=== PATIENT | male | born 1990 | race Caucasian/White ===

== ENCOUNTER → 2020-04-16 | Outpatient (CLI) | payer OTHER ==
[2020-04-16 16:10] LABS: BASO % 1 % (0-3); EOS # 0.1 x10^3/uL (0.0-0.7); EOS % 2 % (0-3); HEMATOCRIT 44.8 % (39.0-53.0); HEMOGLOBIN 15.3 g/dL (13.0-17.5); LYMPH # 1.6 x10^3/uL (1.0-4.8); LYMPH % 23 % (24-48); MEAN CORPUSCULAR HEMOGLOBIN 31 pg (25-35); MEAN CORPUSCULAR HGB CONC 34 g/dL (31-37); MEAN CORPUSCULAR VOLUME 91 fL (79-100); MONO # 0.5 x10^3/uL (0.0-1.1); MONO % 7 % (0-9); NEUT # 4.7 x10^3/uL (1.8-7.7); NEUT % 67 % (31-73); PLATELET COUNT 201 x10^3/uL (140-400); RED BLOOD COUNT 4.94 x10^6/uL (4.30-5.70); RED CELL DISTRIBUTION WIDTH 13.1 % (11.5-14.5)
[2020-04-16 16:21] LABS: PROTHROMBIN TIME PATIENT 12.9 SEC (11.7-14.0)
[2020-04-16 16:31] LABS: ALBUMIN 4.1 g/dL (3.4-5.0); ALBUMIN/GLOBULIN RATIO 1.4 (1.0-1.7); CALCIUM 8.7 mg/dL (8.5-10.1); CREATININE 1.1 mg/dL (0.7-1.3); GFR 80.3; TOTAL BILIRUBIN 1.2 mg/dL (0.2-1.0); TOTAL PROTEIN 7.1 g/dL (6.4-8.2)
[2020-04-17 01:09] LABS: HEMOGLOBIN A1C 5.4 % (4.8-5.6)
== END | disposition home or self-care (01) ==
LOC: SURGPAT 13:38
PROVIDERS: ATTEND Neurological Surgery
DX: M54.12 Radiculopathy, cervical region (principal); M48.02 Spinal stenosis, cervical region
CPT/HCPCS: 36415; 80053; 83036; 85025; 85610; 85730; 87641

== ENCOUNTER → 2020-04-20 | Outpatient (CLI) | payer OTHER ==
[~2020-04-20] MED LIST: ACET500T68 PO; METH-38 PO; OXYC1TAB15 PO; SENN1TAB37 PO
== END | disposition home or self-care (01) ==
LOC: LAB 14:26
PROVIDERS: ATTEND Neurological Surgery
DX: Z01.818 Encounter for other preprocedural examination (principal); Z11.59 Encounter for screening for other viral diseases; M48.02 Spinal stenosis, cervical region; M54.12 Radiculopathy, cervical region; Z98.1 Arthrodesis status
CPT/HCPCS: U0003-CS

== ENCOUNTER 2020-04-24 07:05 | Observation (INO) | payer OTHER ==
[2020-04-24] VITALS (9 sets, daily range): BP systolic 100–125; BP diastolic 62–86
[~2020-04-24] VITALS: Ht 185.4 cm; Wt 93.0 kg
[~2020-04-24 07:05] MED LIST changes: +BACITRACIN 50,000 UNIT in IV NORMAL SALINE 1000ML BAG 1,000 ML IRR ONE; +BUPIVACAINE MPF 0.5% 30 ML VIAL. ONE; +GELATIN SPONGE SIZE 100. ONE; +HYDROmorphone 2 MG/ML VIAL IV PRN; +IV RINGERS,LACTATED 1000ML 1,000 ML IV SCH; +LIDOCAINE 1% PF 2 ML VIAL. ID PRN; +LIDOCAINE 1%/EPI 1:100,000 20 ML VIAL. ONE; -METH-38 PO; +MORPHINE SULFATE 2 MG/ML VIAL. IV PRN; +ONDANSETRON PF 4 MG/2 ML VIAL. IV PRN; -OXYC1TAB15 PO; +PROCHLORPERAZINE 10 MG/2 ML VIAL. IV PRN; -SENN1TAB37 PO; +THROMBIN TOPICAL 20,000 UNIT SPRAY.SYRN KIT TP ONE; +fentaNYL PF VIAL 100 MCG/2 ML VIAL IV PRN
[2020-04-24] MEDS ORDERED: MIDAZOLAM HCL/PF 2 MG/2 ML VIAL. ONE (07:44)
[2020-04-24] MEDS ORDERED: PROPOFOL 10 MG/ML (20ML) VIAL. IV ONE ×2 (07:44→09:59)
[2020-04-24] MEDS ORDERED: fentaNYL PF VIAL 100 MCG/2 ML VIAL ONE (07:44)
[2020-04-24] MEDS ORDERED: SUCCINYLCHOLINE 200 MG/10 ML VIAL. ONE (07:44)
[2020-04-24] MEDS ORDERED: ONDANSETRON PF 4 MG/2 ML VIAL. ONE (07:44)
[2020-04-24] MEDS ORDERED: DEXAMETHASONE SOD PHOS 4 MG/ML VIAL ONE (07:44)
[2020-04-24] MEDS ORDERED: LIDOCAINE 2% PF 5 ML VIAL. ONE (07:44)
[2020-04-24] MEDS ORDERED: REMIFENTANIL 2 MG VIAL. IV ONE (07:47)
[2020-04-24] MEDS ORDERED: PROPOFOL 100 ML IV ONE (07:55)
[2020-04-24] MEDS ORDERED: ROCURONIUM 50 MG/5 ML VIAL. ONE (07:58)
[2020-04-24] MEDS ORDERED: GLYCOPYRROLATE 1 MG/5 ML VIAL. ONE (10:27)
[2020-04-24] MEDS ORDERED: NEOSTIGMINE METHYLSULFATE 5 MG/5 ML SYRINGE. ONE (10:28)
[2020-04-24] MEDS ORDERED: HYDROmorphone 2 MG/ML VIAL ONE (10:38)
[2020-04-24] MEDS ORDERED: BACITRACIN TOPICAL OINT PACKET. TP ONE ×3 (11:07)
--- NOTE | 2020-04-24 11:25 | PDOC ---
BRIEF OPERATIVE NOTE Date: Apr 24, 2020 Pre-Op Diagnosis C7-T1 left foraminal stenosis, radiculopathy Post-Op Diagnosis same Procedure Performed left C7-T1 foraminotomy Surgeon Ryan Fiberglass Finisher none Anesthesia Type: General Blood Loss 10mL Findings significant stenosis left C7-T1 foramen, neuromonitoring potentials improved at completion of procedure Complications none apparent KEVIN ROQUE MD Apr 24, 2020 11:25
[2020-04-24] MEDS ORDERED: MORPHINE SULFATE 2 MG/ML VIAL. ONE (11:43)
[2020-04-24] MEDS ORDERED: MAGNESIUM HYDROXIDE 2,400 MG/30 ML ORAL.SUSP. PO PRN (11:45)
[2020-04-24] MEDS ORDERED: fentaNYL PF VIAL 100 MCG/2 ML VIAL IVP PRN ×2 (11:45)
[2020-04-24] MEDS ORDERED: oxyCODONE/APAP 5/325 1 TAB TABLET PO PRN (11:45)
[2020-04-24] MEDS ORDERED: ONDANSETRON PF 4 MG/2 ML VIAL. IVP PRN (11:45)
[2020-04-24] MEDS ORDERED: diphenhydrAMINE HCL 25 MG CAPSULE PO PRN (11:45)
[2020-04-24] MEDS ORDERED: 0.9 % SODIUM CHLORIDE 10 ML DISP.SYRIN. IV PRN (11:45)
[2020-04-24] MEDS ORDERED: NALOXONE 0.4 MG/ML VIAL. IV PRN ×2 (11:45)
[2020-04-24] MEDS ORDERED: ZOLPIDEM 5 MG TABLET. PO PRN (11:45)
[2020-04-24] MEDS ORDERED: diphenhydrAMINE 50 MG/ML VIAL IV PRN (11:45)
[2020-04-24] MEDS ORDERED: ACETAMINOPHEN 325 MG TABLET. PO PRN (11:45)
[2020-04-24] MEDS ORDERED: CALCIUM CARBONATE 500 MG TAB.CHEW PO PRN (11:45)
[2020-04-24] MEDS ORDERED: MAG HYDROX/ALUMINUM HYD/SIMETH 30 ML ORAL.SUSP PO PRN (11:45)
[2020-04-24] MEDS: MORPHINE SULFATE 2 MG/ML VIAL. IV PRN ×2 (11:47→11:54)
[2020-04-24] MEDS: oxyCODONE/APAP 5/325 1 TAB TABLET PO PRN ×2 (12:24→15:51)
[2020-04-24] MEDS ORDERED: LIDOCAINE 1% PF 2 ML VIAL. ID PRN (12:30)
[2020-04-24] MEDS ORDERED: PROCHLORPERAZINE 10 MG/2 ML VIAL. IV PRN (12:30)
[2020-04-24] MEDS ORDERED: HYDROmorphone 2 MG/ML VIAL IV PRN (12:30)
[2020-04-24] MEDS ORDERED: fentaNYL PF VIAL 100 MCG/2 ML VIAL IV PRN ×2 (12:30)
[2020-04-24] MEDS ORDERED: ONDANSETRON PF 4 MG/2 ML VIAL. IV PRN (12:30)
[2020-04-24] MEDS: METHOCARBAMOL 750 MG TABLET PO SCH ×2 (13:47→21:12)
[2020-04-24] MEDS: IV NORMAL SALINE 1000ML BAG 1,000 ML IV SCH (15:21)
[2020-04-24] MEDS ORDERED: SEVOFLURANE 61 TO 120 MINUTES. IH ONE (15:23)
--- NOTE | 2020-04-24 16:31 | NUR ---
received from recovery. he is alert and oriented. dressing to the posterior neck is clean dry and intact. he is rating his pain "5" he was medicated with fentanyl and Robaxin.pain increased to "6" left arm is slightly tingling but is better than prior to surgery. informed that he has raghavendra in scalp from the halo.
[2020-04-24] MEDS: FERROUS SULFATE 325 MG TABLET. PO SCH (18:38)
[2020-04-24] MEDS: CALCIUM CARB/VIT D3 500/200 TABLET. PO SCH (18:38)
[2020-04-24] MEDS: SENNOSIDES/DOCUSATE 8.6/50MG TABLET. PO SCH (21:12)
[2020-04-25] MEDS: oxyCODONE/APAP 5/325 1 TAB TABLET PO PRN (02:50)
[2020-04-25 03:22] VITALS: BP 117/70
[2020-04-25] MEDS: IV NORMAL SALINE 1000ML BAG 1,000 ML IV SCH (06:28)
[2020-04-25 07:15] VITALS: BP_SYST 104; BP_SYST 134; BP_DIAS 52; BP_DIAS 88
[2020-04-25] MEDS ORDERED: MULTIVITAMIN with MINERAL TABLET. PO SCH (09:00)
[2020-04-25] MEDS: SENNOSIDES/DOCUSATE 8.6/50MG TABLET. PO SCH (09:33)
[2020-04-25] MEDS: CALCIUM CARB/VIT D3 500/200 TABLET. PO SCH (09:33)
[2020-04-25] MEDS: METHOCARBAMOL 750 MG TABLET PO SCH (09:34)
[2020-04-25] MEDS: FERROUS SULFATE 325 MG TABLET. PO SCH (09:34)
--- NOTE | 2020-04-25 10:42 | PDOC ---
Date of Service: DATE: 04/25/20 TIME: 10:35 Progress Note: S: Reports left arm sensation greatly improved - explains essentially feels normal since surgery. Left hand strength improved. O: AF/VSS, AAOx4, NAD, ALCAZAR 5/5 including left cotton weigher operator 5/5, sensation intact LT, dressing c/d/i, flat A: POD 1 left C7-T1 foraminotomy - recovering well thus far P: d/c home today with standard post-op restrictions, f/u 2 weeks in clinic for staple removal and routine reassessment, Justicifation of Admission Dx: Justifications for Admission: Justification of Admission Dx: N/A KEVIN ROQUE MD Apr 25, 2020 10:42
[2020-04-25 10:57] VITALS: BP 131/82
[2020-04-25] MEDS ORDERED: OXYC1TAB15 PO (11:02)
[2020-04-25] MEDS ORDERED: SENN1TAB37 PO (11:03)
[2020-04-25] MEDS ORDERED: METH-38 PO (11:04)
== END 2020-04-25 11:50 | disposition home or self-care (01) ==
LOC: EDBD → SURG 07:05 → EDUNIT# 08:30 → 4 NORTH 11:36
PROVIDERS: ADMIT Neurological Surgery; ATTEND Neurological Surgery
DX: M48.02 Spinal stenosis, cervical region (principal); M54.12 Radiculopathy, cervical region
CPT/HCPCS: 63001; 76000; 96374; 96375; 97116; 97162; 97165; 97530; A7015; G0378; G0379; J0330; J0690; J1100; J1170; J2250; J2270; J2405; J2704; J2710; J3010; J3490; J7030

== ENCOUNTER → 2020-10-03 | Outpatient (CLI) | payer OTHER ==
[~2020-10-03] MED LIST changes: -BACITRACIN 50,000 UNIT in IV NORMAL SALINE 1000ML BAG 1,000 ML IRR ONE; -BUPIVACAINE MPF 0.5% 30 ML VIAL. ONE; -GELATIN SPONGE SIZE 100. ONE; -HYDROmorphone 2 MG/ML VIAL IV PRN; -IV RINGERS,LACTATED 1000ML 1,000 ML IV SCH; -LIDOCAINE 1% PF 2 ML VIAL. ID PRN; -LIDOCAINE 1%/EPI 1:100,000 20 ML VIAL. ONE; +METH-38 PO; +METH100V PO; -MORPHINE SULFATE 2 MG/ML VIAL. IV PRN; -ONDANSETRON PF 4 MG/2 ML VIAL. IV PRN; +OXYC1TAB15 PO; -PROCHLORPERAZINE 10 MG/2 ML VIAL. IV PRN; +SENN1TAB37 PO; +SENN8.6T11 PO; -THROMBIN TOPICAL 20,000 UNIT SPRAY.SYRN KIT TP ONE; -fentaNYL PF VIAL 100 MCG/2 ML VIAL IV PRN
--- NOTE | 2020-10-03 15:33 | KCIC ---
MR CERVICAL SPINE WO History:Reason: CERVICALGIA / Spl. Instructions: S/P surgery 04/2020 / History: Reoccuring pain in rec ent months, traveling down left arm. Technique: Multiplanar, multi sequential noncontrast MR imaging was performed of the cervical spine. Comparison: None Findings: Normal vertebral body height and alignment. No fracture. No pathologic signal abnormality within the cervical spinal cord. C2-C3: No canal or neuroforaminal narrowing. C3-C4: No canal or neuroforaminal narrowing. C4-C5: Left foraminal disc protrusion. No canal narrowing. Mild left neuroforaminal narrowing. No ri ght neuroforaminal narrowing. C5-C6: Minimal disc bulge. No canal or neuroforaminal narrowing. C6-C7: Left foraminal disc protrusion. Mild left neuroforaminal narrowing with abutment of exiting nerve root. C7-T1: Left foraminal disc protrusion. No canal narrowing. Severe left neuroforaminal narrowing with impingement of the exiting nerve root. Impression: 1. Multilevel left neuroforaminal disc protrusions C4-C5, C6-C7 and C7-T1 contributing to neuroforam inal narrowing. 2. Left C7-T1 severe neuroforaminal narrowing with impingement of the exiting nerve root. Electronically signed by: Jorden Rahman DO (10/03/2020 3:31 PM) [id number]
== END ==
LOC: KCIC MRI 14:29
PROVIDERS: ATTEND Neurological Surgery
DX: M50.223 Other cervical disc displacement at C6-C7 level (principal)
CPT/HCPCS: 72141

== ENCOUNTER → 2021-01-04 | Outpatient (CLI) | payer OTHER ==
[2021-01-04 13:12] LABS: BASO % 0 % (0-3); EOS % 0 % (0-3); HEMATOCRIT 43.5 % (39.0-53.0); HEMOGLOBIN 14.9 g/dL (13.0-17.5); LYMPH % 10 % (24-48); MEAN CORPUSCULAR HEMOGLOBIN 30 pg (25-35); MEAN CORPUSCULAR HGB CONC 34 g/dL (31-37); MEAN CORPUSCULAR VOLUME 89 fL (79-100); MONO # 0.5 x10^3/uL (0.0-1.1); MONO % 5 % (0-9); NEUT # 8.5 x10^3/uL (1.8-7.7); NEUT % 85 % (31-73); PLATELET COUNT 213 x10^3/uL (140-400); RED BLOOD COUNT 4.92 x10^6/uL (4.30-5.70); RED CELL DISTRIBUTION WIDTH 13.7 % (11.5-14.5)
[2021-01-04 13:20] LABS: PROTHROMBIN TIME PATIENT 13.2 SEC (11.7-14.0)
[2021-01-04 13:28] LABS: ALBUMIN 4.8 g/dL (3.4-5.0); ALBUMIN/GLOBULIN RATIO 1.7 (1.0-1.7); POTASSIUM 4.1 mmol/L (3.5-5.1); TOTAL BILIRUBIN 1.5 mg/dL (0.2-1.0); TOTAL PROTEIN 7.6 g/dL (6.4-8.2)
[2021-01-04 13:33] LABS: CALCIUM 9.3 mg/dL (8.5-10.1)
[2021-01-05 00:08] LABS: HEMOGLOBIN A1C 5.4 % (4.8-5.6)
== END ==
LOC: LAB 12:38
PROVIDERS: ATTEND Neurological Surgery
DX: Z01.812 Encounter for preprocedural laboratory examination (principal); M48.02 Spinal stenosis, cervical region; M50.20 Other cervical disc displacement, unspecified cervical region; M50.10 Cervical disc disorder with radiculopathy, unspecified cervical region; Z20.822 Contact with and (suspected) exposure to COVID-19
CPT/HCPCS: 36415; 80053; 83036; 85025; 85610; 85730; 87641; U0003; U0005

== ENCOUNTER 2021-01-08 06:49 | Day surgery (SDC) | payer OTHER ==
[~2021-01-08 06:49] MED LIST changes: +BACITRACIN 50,000 UNIT in IV NORMAL SALINE 1000ML BAG 1,000 ML IRR ONE; +HYDROmorphone 2 MG/ML VIAL IVP PRN; +IV RINGERS,LACTATED 1000ML 1,000 ML IV SCH; -METH100V PO; +PROCHLORPERAZINE 10 MG/2 ML VIAL. IVP PRN; -SENN8.6T11 PO; +fentaNYL PF VIAL 100 MCG/2 ML VIAL IVP PRN
[2021-01-08] MEDS ORDERED: GELATIN SPONGE SIZE 100. ONE (07:04)
[2021-01-08] MEDS ORDERED: THROMBIN TOPICAL 20,000 UNIT SPRAY.SYRN KIT TP ONE (07:05)
[2021-01-08] MEDS ORDERED: BUPIVACAINE-EPI 0.5% 30 ML VIAL KIT. ONE (07:05)
[2021-01-08] MEDS ORDERED: LIDOCAINE 2% PF 5 ML VIAL. ONE (07:52)
[2021-01-08] MEDS ORDERED: PROPOFOL 10 MG/ML (20ML) VIAL. IV ONE (07:52)
[2021-01-08] MEDS ORDERED: fentaNYL PF VIAL 100 MCG/2 ML VIAL ONE ×2 (07:52→11:31)
[2021-01-08] MEDS ORDERED: SUCCINYLCHOLINE 200 MG/10 ML VIAL. ONE (07:53)
[2021-01-08] MEDS ORDERED: ROCURONIUM 50 MG/5 ML VIAL. ONE (07:53)
[2021-01-08] MEDS ORDERED: REMIFENTANIL 2 MG VIAL. IV ONE (07:53)
[2021-01-08] MEDS ORDERED: POVIDONE-IODINE 10% TOPICAL OINTMENT 28GM TUBE. TP ONE (08:40)
[2021-01-08] MEDS ORDERED: DEXAMETHASONE SOD PHOS 4 MG/ML VIAL ONE (08:57)
[2021-01-08] MEDS ORDERED: DESFLURANE 61 TO 120 MINUTES IH ONE (09:26)
[2021-01-08] MEDS ORDERED: PHENYLEPHRINE in 0.9% NACL PF 1 MG/10 ML SYRINGE. IV ONE (09:26)
[2021-01-08] MEDS ORDERED: PROPOFOL 50 ML IV ONE ×2 (09:58)
[2021-01-08] MEDS ORDERED: ePHEDrine PF IN SALINE 50 MG/10 ML SYRINGE. IV ONE (10:26)
[2021-01-08] MEDS ORDERED: ONDANSETRON PF 4 MG/2 ML VIAL. ONE (10:50)
--- NOTE | 2021-01-08 11:26 | PDOC ---
BRIEF OPERATIVE NOTE Date: January 08, 2021 Pre-Op Diagnosis cervical radiculopathy, foraminal stenosis left C7-T1 Post-Op Diagnosis same Procedure Performed redo left C7-T1 foraminotomy Surgeon Ryan Cloth Weaver none Anesthesia Type: General Blood Loss 20mL Specimens Obtained decompression Findings neuromonitoring improved after decompression/foraminotomy complete Complications none apparent KEVIN ROQUE MD January 08, 2021 11:25
[2021-01-08] MEDS: fentaNYL PF VIAL 100 MCG/2 ML VIAL IVP PRN ×2 (11:38→11:43)
[2021-01-08] MEDS ORDERED: METH100V PO (11:45)
[2021-01-08] MEDS ORDERED: OXYC1TAB15 PO (11:47)
[2021-01-08] MEDS ORDERED: SENN8.6T11 PO (11:49)
[2021-01-08] MEDS ORDERED: MORPHINE SULFATE 2 MG/ML VIAL. ONE (11:58)
[2021-01-08] MEDS ORDERED: oxyCODONE/APAP 5/325 1 TAB TABLET PO ONE ×2 (12:00)
[2021-01-08] MEDS: MORPHINE SULFATE 2 MG/ML VIAL. IVP PRN ×2 (12:02→12:12)
[2021-01-08 12:55] VITALS: BP 119/58
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
--- NOTE | 2021-01-11 13:11 | PATHOLOGY ---
[facility] Accession Number: [id number] . 01 Material submitted: . vertebral column - C7-T1 DECOMPRESSION . 01 Clinical history: . CERVICAL RADICULOPATHY CERVICAL-7,THORACIC-1 FORAMINOTOMY . 02 Diagnosis: Segments of fibrocartilaginous tissue and bone, C7-T1 decompression: - Degenerative changes of fibrocartilaginous tissue. . (JP:mm; 01/11/2021) [facility] 01/11/2021 1019 Local . 02 Comment: There is no evidence of an acute inflammatory process or malignancy. . (JPM:mml; 01/11/2021) . 02 Electronically signed: . Joshua Oliva MD, Pathologist NPI- [id number] . 01 Gross description: . The specimen is received in formalin, labeled "Lucius Martella, decompression". The source is additionally labeled on the requisition as, "cervical 7 thoracic 1 decompression". Received are multiple segments of pink-nguyen fibrous and gritty tissue measuring 2.7 x 1.5 x 0.3 cm in aggregate dimensions. The specimen is filtered and entirely submitted in cassette A1, following light decalcification. (CAA; 01/09/2021) QAC/QAC 01/11/2021 1013 Local . 02 Pathologist provided ICD-10: M50.30 . 02 CPT . 157642, 440314 Specimen Comment: A courtesy copy of this report has been sent to [phone] Specimen Comment: Report sent to / DR SMART Performed at: [address], [place], [place] [id number] MD Migue Jameson MD Phone: [phone] Performed at: 02 [facility] [address] [place], [place] [id number] MD Joshua Oliva MD Phone: [phone]
== END 2021-01-08 13:50 | disposition home or self-care (01) ==
LOC: SURG 06:49
PROVIDERS: ATTEND Neurological Surgery
DX: M48.02 Spinal stenosis, cervical region (principal); M50.10 Cervical disc disorder with radiculopathy, unspecified cervical region; G47.30 Sleep apnea, unspecified; M19.90 Unspecified osteoarthritis, unspecified site; Z79.899 Other long term (current) drug therapy; Z98.890 Other specified postprocedural states
CPT/HCPCS: 63045; A4364; A4930; A6223; A6254; A6258; A6402; J0330; J0690; J1100; J2270; J2370; J2405; J2704; J3010; J7030; 76000; A4222; A4452